=== PATIENT | male | born 1950 | race American Indian/Alaskan Native ===

== ENCOUNTER 2024-02-08 08:25 | Day surgery (SDC) | payer BC, MEDICARE, OTHER ==
[2024-01-29 11:43] LABS: BASOPHILS # (AUTO) 0.1 X10'3 (0-0.2); BASOPHILS % (AUTO) 0.7 % (0-1); EOSINOPHILS # (AUTO) 0.5 X10'3 (0-0.9); EOSINOPHILS % (AUTO) 5.3 % (0-6); LYMPHOCYTES # (AUTO) 2.2 X10'3 (1.1-4.8); LYMPHOCYTES % (AUTO) 25.7 % (21-51); MEAN CORPUSCULAR HEMOGLOBIN 30.2 PG (27.0-31.0); MEAN CORPUSCULAR VOLUME 91.7 FL (78-98); MEAN PLATELET VOLUME 9.6 FL (7.4-10.4); MONOCYTES # (AUTO) 0.9 X10'3 (0-0.9); MONOCYTES % (AUTO) 10.7 % (2-12); NEUTROPHILS % (AUTO) 57.6 % (42-75); PRE OP HEMATOCRIT 46.5 % (42.0-52.0); PRE OP HEMOGLOBIN 15.3 g/dL (14.0-17.9); PRE OP PLATELET COUNT 165 X10'3 (140-440); PRE OP WHITE BLOOD COUNT 8.6 10'3 (4.8-10.8); RED BLOOD COUNT 5.07 X10'6 (4.70-6.10); RED CELL DISTRIBUTION WIDTH 14.1 % (11.5-14.5)
[2024-01-29 11:50] LABS: BILIRUBIN,URINE NEGATIVE (Neg); CLARITY,URINE CLEAR (Clear); COLOR,URINE YELLOW (Yellow); GLUCOSE, URINE >=1000 mg/dl (Neg); KETONES,URINE NEGATIVE (Neg); LEUKOCYTE ESTERASE ,URINE NEGATIVE (Neg); NITRITES, URINE NEGATIVE (Neg); OCCULT BLOOD,URINE NEGATIVE (Neg); PROTEIN,URINE NEGATIVE (Neg); UROBILINOGEN,URINE 0.2 E.U/dL (0.2-1.0)
[2024-01-29 11:52] LABS: UA COLLECTION TYPE CLN CATCH MIDSTREAM
[2024-01-29 11:58] LABS: BACTERIA,URINE NONE SEEN /HPF (Neg); RBC,URINE NONE SEEN /HPF (0-2); SQUAMOUS EPITHELIAL CELL,UR NONE SEEN /LPF (FEW); WBC,URINE NONE SEEN /HPF (0-4)
[2024-01-29 12:07] LABS: ALBUMIN 3.3 G/DL (3.4-5.0); ALBUMIN/GLOBULIN RATIO 0.7 (1.1-1.5); ALKALINE PHOSPHATASE 93 IU/L (46-116); BLOOD UREA NITROGEN 12 MG/DL (7-18); BUN/CREATININE RATIO 10.9 (10.0-20.0); CALCIUM 8.5 MG/DL (8.5-10.1); CHLORIDE 107 MMOL/L (99-107); PRE OP ALT 19 U/L (30-65); PRE OP ANION GAP 6 (8-16); PRE OP AST 17 U/L (10-37); PRE OP BILIRUB, TOTAL 0.8 MG/DL (0.0-1.0); PRE OP GLUCOSE 86 MG/DL (70-104); PRE OP POTASSIUM 4.1 MMOL/L (3.4-5.1); PRE OP SODIUM 139 MMOL/L (135-145); TOTAL CARBON DIOXIDE 26.5 MMOL/L (24-32); eGFR 65 ML/MIN
[~2024-02-08] VITALS: Ht 165.1 cm; Wt 98.1 kg
[2024-02-08] VITALS (11 sets, daily range): BP systolic 111–183; BP diastolic 51–87; PULSE 55–79; RESP 12–21; TEMP 98–98.1; O2SAT 94–100
[2024-02-08] MEDS: ceFAZolin 2gm in dextrose, iso 50 ML IV ONE (05:30)
[~2024-02-08 08:25] MED LIST: ASPI-1397 PO; ATOR40TA71 PO; DAPA10TA PO
[2024-02-08] MEDS: famotidine 20mg tablet PO ONE (09:44)
[2024-02-08] MEDS: ringers solution, lacted 1,000 ML IV SCH (09:44)
[2024-02-08] MEDS ORDERED: BUPIVACAINE liposomal/PF 13.3 MG/ML vial IM ONE (10:37)
[2024-02-08] MEDS ORDERED: sevoflurane 250ml liquid IH ONE (11:32)
[2024-02-08] MEDS ORDERED: midazolam 1 mg/ML 2ml injection ONE (11:43)
[2024-02-08] MEDS ORDERED: fentaNYL/PF 50MCG/1 ML 2ML syringe ONE (11:43)
[2024-02-08] MEDS ORDERED: acetaminophen 1,000mg/100ml IV 100 ML IV ONE (12:15)
[2024-02-08] MEDS ORDERED: ondansetron/PF 4mg/2ml inj ONE (12:15)
[2024-02-08] MEDS ORDERED: vancomycin 1,000mg inj ONE (12:37)
[2024-02-08] MEDS ORDERED: morphine 2 MG/ML inj. syringe IV PRN (12:50)
[2024-02-08] MEDS ORDERED: proMETHazine 25mg rectal suppository RC PRN (12:50)
[2024-02-08] MEDS ORDERED: ROPIVAcaine 0.2% (10 MG/5 ML) BOLUS INJECTION POPLITEAL PRN (12:50)
[2024-02-08] MEDS ORDERED: fentaNYL/PF 50MCG/1 ML 2ML syringe IV PRN ×2 (12:50)
[2024-02-08] MEDS ORDERED: hydrALAZINE 20mg/ml inj. IV PRN (12:50)
[2024-02-08] MEDS ORDERED: ringers solution, lacted 1,000 ML IV SCH (12:50)
[2024-02-08] MEDS ORDERED: ondansetron/PF 4mg/2ml inj IV PRN (12:50)
[2024-02-08] MEDS ORDERED: labetalol 20mg/4ml (5mg/ml) syringe IV PRN (12:50)
[2024-02-08] MEDS ORDERED: propofol inj 20 ML IV ONE (13:08)
[2024-02-08] MEDS ORDERED: LIDOcaine 2% (20mg/ml) 5ml vial ONE (13:08)
[2024-02-08] MEDS: morphine 4 MG/ML inj SYRINge IV PRN (14:02)
[2024-02-08] MEDS: ROPIVAcaine 0.2%/PF PUMP/bolus 545 ML POPLITEAL SCH (14:12)
== END 2024-02-08 15:10 | disposition home or self-care (01) ==
LOC: PRE-OP 08:25
PROVIDERS: ATTEND Podiatrist Foot & Ankle Surgery
DX: M76.62 Achilles tendinitis, left leg (principal); G89.18 Other acute postprocedural pain; I25.119 Atherosclerotic heart disease of native coronary artery with unspecified angina pectoris; E66.3 Overweight; E78.5 Hyperlipidemia, unspecified; Z86.73 Personal history of transient ischemic attack (TIA), and cerebral infarction without residual deficits; Z79.82 Long term (current) use of aspirin; Z79.899 Other long term (current) drug therapy; Z68.36 Body mass index [BMI] 36.0-36.9, adult; Z88.8 Allergy status to other drugs, medicaments and biological substances
CPT/HCPCS: 27654; 36415; 64445; 64447; 80053; 81001; 82948; 85025; 87070; 87075; 87076; 87077; 87102; 87185; 87186; A6222; C9290; J0131; J0330; J0690; J1100; J2250; J2270; J2405; J2704; J2795; J3010; J3370; J3490; J7030; J7120; Z7506; Z7508; Z7512; A4215; A4618; A6253; A6449; A7000